=== PATIENT | male | born 1950 | race Caucasian/White ===

== ENCOUNTER 2021-03-22 19:10 | Emergency (ER) | payer MEDICARE, SELFPAY ==
[2021-03-22 19:12] VITALS: BP 163/60; PULSE 58; RESP 16; TEMP 36.6; O2SAT 95; BMI 35.2
--- NOTE | 2021-03-22 19:42 | EX.ED.VIS.UR ---
HPI HPI - URI History of Present Illness Chief Complaint: Shortness of Breath Informant: patient and family Onset/Context/Timing Onset: Days Context: Gradual Onset Timing: Continuous Current Severity: Mild Associated Symptoms Associated Symptoms: Positive for Nasal Congestion, Myalgias, Nausea, Vomiting and Nonproductive cough; Negative for Hemoptysis and Productive Cough Narrative Narrative: 70-year-old male history of hypertension high cholesterol. No history of prior DVT or PE. Did a home test that was Covid positive on Sunday. Has had symptoms since last Sunday so is day 7. He has not had a formal test done in the hospital. He was seen at [place]. Prior similar symptoms: No Recent Illness/Hospitalization: No ROS ROS ED ROS Narrative Myalgias, cough and vomiting. Review of Systems ROS Unobtainable: Denies due to encephalopathy Constitutional Constitutional ED: Denies fever(s) Eyes Eyes: Denies change in vision ENT ENT ED: Denies ear pain or sore throat Cardiovascular Cardiovascular: Denies chest pain Respiratory/Chest Respiratory/Chest: Reports cough; Denies dyspnea Gastrointestinal Gastrointestinal: Reports nausea and vomiting; Denies abdominal pain or diarrhea Genitourinary Genitourinary ED: Denies dysuria Musculoskeletal Musculoskeletal: Reports myalgias Integumentary Denies rash Neurologic Neurologic: Denies headache(s) Psychiatric Psychiatric: Denies depression Endocrine Endocrinology: Denies polyuria Hematologic/Lymphatic Hematologic/Lymphatic: Denies easy bruising Allergic/Immunologic Allergic/Immunologic ED: Denies urticaria [facility] Medical History (Updated 03/22/21 @ 21:[address] Emil Brooks MD) High cholesterol HTN (hypertension) Home Medications dexamethasone [Decadron] 6 mg PO DAILY 10 Days #10 tab 03/22/21 [Rx Last Taken Unknown] Allergy/AdvReac Type Severity Reaction Status Date / Time Penicillins AdvReac Nausea Verified 03/22/21 19:18 Social History Smoking Status: Never smoker EXAM Physical Exam Narrative Exam Narrative: Well-appearing 70-year-old male vital signs stable afebrile. Pulse ox 95% on room air no hypoxia. He does not look septic or toxic. He is in no distress. HEENT exam unremarkable. Neck nontender. Lungs clear to auscultation bilaterally. Heart regular rhythm no murmur. Abdomen soft nontender. Moving all 4 extremities. Calves are nontender without edema or cords. Neurologically is awake and alert. Clinically looks well. Const Vital Signs: 03/22/21 19:12 03/22/21 19:51 Temperature 97.9 F Temperature Source Temporal Pulse Rate 58 L Respiratory Rate 16 Respiratory Effort Short of Breath Respiratory Depth Normal Respiratory Pattern Normal Blood Pressure 163/60 H Blood Pressure Mean 94 Pulse Ox 95 Oxygen Delivery Method Room Air Positive well nourished and well developed; Negative for obese, cachectic or contractures General Appearance ED: well developed and NAD; Negative for cachectic, contractures, cyanotic, diaphoretic or pallor Nutritional Appearance: Negative for cachectic or obese HEENT Reports moist mucous membranes normocephalic and atraumatic; Negative for scalp tenderness Face and Sinus: Negative for sinus tenderness Eyes PERRL and EOMs intact bilaterally Neck no lymphadenopathy, supple, no meningeal signs and no JVD General: Negative for anterior neck swelling or lymphadenopathy Resp normal respiratory effort and clear to auscultation bilaterally Auscultation: Negative for rales, rhonchi or wheezes Cardio S1 normal heart sound, S2 normal heart sound and no murmurs Rate: regular rate Rhythm: regular rhythm GI non-tender, non-distended and no masses Inspection: Negative for abdominal distention Auscultation: normoactive bowel sounds; Negative for hyperactive bowel sounds Palpation: soft; Negative for tender or guarding Back/Spine no CVA tenderness; Negative for normal ROM Extremity normal to inspection and full ROM General Extremety ED: Negative for cyanosis or tenderness General Extremity: Negative for cyanosis Neuro oriented x3 Sensorium / Orientation: alert, oriented to person, oriented to place and oriented to time; Negative for orientation impaired, lethargic or stuporous Motor Exam: strength 5/5 throughout Psych mental status grossly normal Attitude: No agitated Mood & Affect: Negative for depressed or tearful Skin General Skin Exam: Negative for jaundice or pallor Lesions: no lesions Rashes: no rashes and No rashes noted MDM MDM MDM Narrative Medical decision making narrative: 70-year-old male reported a positive home Covid test with him being currently day 7 of symptoms from last Sunday. I will get a Covid test and start him on Decadron. If his Covid is positive will refer him for monoclonal antibody therapy. Repeat exam patient doing well. Will be discharged on daily Decadron for 10 PM. Outpatient monoclonal therapy referral. Lab Data Attestation: I reviewed the patient's lab results. Lab results narrative: Rapid Covid antigen test is positive. Discharge Plan Triage Chief Complaint: Shortness of Breath ED Provider: Emil Brooks Dx/Rx/DC Orders Clinical Impression: COVID-19 Instructions: Human Coronaviruses Prescriptions: New dexamethasone [Decadron] 6 mg tablet 6 mg PO DAILY 10 Days Qty: 10 RF: 0 Other Ambulatory Orders: COVID Outpatient Monoclonal Antibody Referral (Routine) Timeframe: 1 Day Facility: [facility] - Location: [facility] Ordered By: Dr. Emil Brooks Primary Care Provider: Care Physician,No Primary Referrals: Lamonte Harrell MD [STAFF PHYSICIAN] - As Needed Care Physician,No Primary [Primary Care Provider] - Activity Restrictions/Additional Instructions: Plenty of fluids and rest. Decadron to be taken daily. Start that tomorrow. They should call you tomorrow by noon to set up the monoclonal antibody therapy if they do not call you by noon tomorrow call the emergency department will contact you for the monoclonal antibody center here at the hospital. You basically have the next 3 days to get that done. Disposition Disposition: Home, Self Care
[2021-03-22] MEDS: dexAMETHasone 4 MG Tablet 6 MG PO (19:50)
== END 2021-03-22 22:05 | disposition home or self-care (01) ==
PROVIDERS: Emergency Provider Emergency Medicine
DX: U07.1 COVID-19 (principal)
CPT/HCPCS: 87426; 99283

== ENCOUNTER 2021-03-23 15:39 | Outpatient (CLI) | payer MEDICARE, SELFPAY ==
[2021-03-23 15:49] VITALS: BP 169/72; PULSE 51; RESP 16; TEMP 36.5; O2SAT 99; BMI 34.6
[2021-03-23] MEDS: 0.9% Saline Lock 10 ML Syringe IV (15:59)
[2021-03-23 16:31] VITALS: BP 144/70; PULSE 46; RESP 16; TEMP 36.8; O2SAT 98
[2021-03-23 17:19] VITALS: BP 153/68; PULSE 44; RESP 16; TEMP 36.7; O2SAT 99
== END 2021-03-23 17:25 | disposition home or self-care (01) ==
LOC: MS3OUT 15:39 → MS3 15:40
PROVIDERS: Referring Provider Nurse Practitioner Adult Health; Visit Provider Nurse Practitioner Adult Health
DX: Z23 Encounter for immunization (principal); U07.1 COVID-19
CPT/HCPCS: J7050; M0245; Q0245; A4216